=== PATIENT | male | born 1995 | race Caucasian/White ===

== ENCOUNTER 2019-07-20 11:17 | Emergency (ER) | payer OTHER, SELFPAY ==
[2019-07-20] MEDS ORDERED: KETOROLAC 30 MG/ML INJ ONE (11:51)
[2019-07-20] MEDS ORDERED: NA CHLORIDE 0.9% 1,000 ML ONE (11:51)
[2019-07-20 12:27] LABS: Basophils % 0.2 % (0-1.3); Hematocrit 43.2 % (39.6-49.0); Lymphocytes % 20.3 % (15.3-44.8); MPV 7.3 fL (7.6-11.3); RBC Red Blood Cell Count 5.16 M/uL (4.33-5.43)
[2019-07-20 12:37] LABS: Potassium 3.9 mmol/L (3.5-5.1)
--- NOTE | 2019-07-20 13:37 | EDPHYS ---
Physician Documentation [facility] Name: Aubrey Flores Age: 23 yrs Sex: Male : 1995 Arrival Date: 07/20/2019 Time: 11:21 Bed 20 Private MD: None, None ED Physician Oscar Díaz HPI: 07/20 14:31 This 23 yrs old Male presents to ER via Ambulatory with complaints of Back kdr Pain, Trouble Walking. 14:31 The patient has had generalized myalgia and arthralgia for the past week. he has not kdr had this before. He denies fever or any other associated s/s. Onset: The symptoms/episode began/occurred gradually, 1 week(s) ago. Severity of symptoms: At their worst the symptoms were mild in the emergency department the symptoms are unchanged. The patient has not experienced similar symptoms in the past. The patient has not recently seen a physician. Historical: - Allergies: 11:33 PENICILLINS; hb - Home Meds: 11:33 None [Active]; hb - PMHx: 11:33 None; hb - PSHx: 11:33 None; hb - Immunization history:: Adult Immunizations up to date. - Social history:: Smoking status: Patient/guardian denies using tobacco. - Ebola Screening: : No symptoms or risks identified at this time. ROS: 14:31 Constitutional: Negative for fever, chills, and weight loss, Eyes: Negative for injury, kdr pain, redness, and discharge, Neck: Negative for injury, pain, and swelling, Cardiovascular: Negative for chest pain, palpitations, and edema, Respiratory: Negative for shortness of breath, cough, wheezing, and pleuritic chest pain, Abdomen/GI: Negative for abdominal pain, nausea, vomiting, diarrhea, and constipation, Back: Negative for injury and pain, : Negative for injury, bleeding, discharge, and swelling, Skin: Negative for injury, rash, and discoloration, Neuro: Negative for headache, weakness, numbness, tingling, and seizure activity. Psych: Negative for depression, anxiety, suicide ideation, homicidal ideation, and hallucinations, Allergy/Immunology: Negative for hives, rash, and allergies, Endocrine: Negative for neck swelling, polydipsia, polyuria, polyphagia, and marked weight changes, Hematologic/Lymphatic: Negative for swollen nodes, abnormal bleeding, and unusual bruising. 14:31 MS/extremity: Positive for pain, Generalized myalgia and arthralgia . Exam: 14:31 Constitutional: This is a well developed, well nourished patient who is awake, alert, kdr and in no acute distress. Head/Face: Normocephalic, atraumatic. Eyes: Pupils equal round and reactive to light, extra-ocular motions intact. Lids and lashes normal. Conjunctiva and sclera are non-icteric and not injected. Cornea within normal limits. Periorbital areas with no swelling, redness, or edema. Neck: Trachea midline, no thyromegaly or masses palpated, and no cervical lymphadenopathy. Supple, full range of motion without nuchal rigidity, or vertebral point tenderness. No Meningismus. Chest/axilla: Normal chest wall appearance and motion. Nontender with no deformity. No lesions are appreciated. Cardiovascular: Regular rate and rhythm with a normal S1 and S2. No gallops, murmurs, or rubs. Normal PMI, no JVD. No pulse deficits. Respiratory: Lungs have equal breath sounds bilaterally, clear to auscultation and percussion. No rales, rhonchi or wheezes noted. No increased work of breathing, no retractions or nasal flaring. Abdomen/GI: Soft, non-tender, with normal bowel sounds. No distension or tympany. No guarding or rebound. No evidence of tenderness throughout. Back: No spinal tenderness. No costovertebral tenderness. Full range of motion. Skin: Warm, dry with normal turgor. Normal color with no rashes, no lesions, and no evidence of cellulitis. MS/ Extremity: Pulses equal, no cyanosis. Neurovascular intact. Full, normal range of motion. Neuro: Awake and alert, GCS 15, oriented to person, place, time, and situation. Cranial nerves II-XII grossly intact. Motor strength 5/5 in all extremities. Sensory grossly intact. Cerebellar exam normal. Normal gait. Psych: Awake, alert, with orientation to person, place and time. Behavior, mood, and affect are within normal limits. Vital Signs: 11:33 BP 137 / 77; Pulse 86; Resp 16; Temp 97.8; Pulse Ox 100% on R/A; Weight 104.33 kg; hb Height 6 ft. (182.88 cm); Pain 8/10; 13:10 BP 123 / 72; Pulse 60; Resp 16; Pulse Ox 98% on R/A; sg 11:33 Body Mass Index 31.19 (104.33 kg, 182.88 cm) hb MDM: 13:35 Patient medically screened. kdr 14:31 Data reviewed: vital signs, nurses notes, lab test result(s), radiologic studies. [facility] Counseling: I had a detailed discussion with the patient and/or guardian regarding: the historical points, exam findings, and any diagnostic results supporting the discharge/admit diagnosis, lab results, radiology results, the need for outpatient follow up. 07/20 11:46 Order name: CBC with Diff; Complete Time: 13:32 kdr 07/20 11:46 Order name: Chem 7; Complete Time: 13:32 kdr 07/20 11:46 Order name: Flu; Complete Time: 13:32 kdr 07/20 13:47 Order name: Urine Dipstick--Ancillary (enter results) eb Administered Medications: 12:09 Drug: NS 0.9% 1000 ml Route: IV; Rate: 1 bolus; Site: right antecubital; sg 12:09 Drug: TORadol - Ketorolac 15 mg Route: IVP; Site: right antecubital; sg 13:30 Follow up: Response: No adverse reaction sg Disposition: 07/20/19 13:35 Discharged to Home. Impression: Viral infection of unspecified site, Malaise and fatigue, Diarrhea, unspecified. - Condition is Stable. - Discharge Instructions: Fatigue, Diarrhea, Adult, [id number], Muscle Cramps and Spasms, [id number]. - Work release form, Medication Reconciliation Form, Thank You Letter form. - Follow up: Private Physician; When: 2 - 3 days; Reason: If symptoms return, Further diagnostic work-up, Recheck today's complaints, Continuance of care, Re-evaluation by your physician. - Problem is new. - Symptoms have improved. Signatures: Dispatcher [employer] Asher Paulino RN RN sg Osacr Díaz MD MD [facility] Madonna Martin RN RN Diandra Araujo Corrections: (The following items were deleted from the chart) 13:37 13:35 07/20/2019 13:35 Discharged to Home. Impression: Viral infection of unspecified kdr site; Malaise and fatigue. Condition is Stable. Forms are Medication Reconciliation Form, Thank You Letter, Antibiotic Education, Prescription Opioid Use. Follow up: Private Physician; When: 2 - 3 days; Reason: If symptoms return, Further diagnostic work-up, Recheck today's complaints, Continuance of care, Re-evaluation by your physician. Problem is new. Symptoms have improved. kdr 14:00 13:37 07/20/2019 13:35 Discharged to Home. Impression: Viral infection of unspecified eb site; Malaise and fatigue; Diarrhea, unspecified. Condition is Stable. Discharge Instructions: Fatigue, Muscle Cramps and Spasms, [id number]. Forms are Medication Reconciliation Form, Thank You Letter. Follow up: Private Physician; When: 2 - 3 days; Reason: If symptoms return, Further diagnostic work-up, Recheck today's complaints, Continuance of care, Re-evaluation by your physician. Problem is new. Symptoms have improved. kdr
--- NOTE | 2019-07-20 13:37 | ER ---
Nurse's Notes [facility] Name: Aubrey Flores Age: 23 yrs Sex: Male : 1995 Arrival Date: 07/20/2019 Time: 11:21 Bed 20 Private MD: None, None Diagnosis: Viral infection of unspecified site;Malaise and fatigue;Diarrhea, unspecified Presentation: 07/20 11:31 Presenting complaint: Low back pain, fatigue, and chills x 5 days, diarrhea x 2 days. hb Transition of care: patient was not received from another setting of care. Onset of symptoms was July 15, 2019. Risk Assessment: Do you want to hurt yourself or someone else? Patient reports no desire to harm self or others. Initial Sepsis Screen: Does the patient meet any 2 criteria? No. Patient's initial sepsis screen is negative. Does the patient have a suspected source of infection? No. Patient's initial sepsis screen is negative. Care prior to arrival: None. 11:31 Method Of Arrival: Ambulatory hb 11:31 Acuity: CATHY 4 hb Historical: - Allergies: 11:33 PENICILLINS; hb - Home Meds: 11:33 None [Active]; hb - PMHx: 11:33 None; hb - PSHx: 11:33 None; hb - Immunization history:: Adult Immunizations up to date. - Social history:: Smoking status: Patient/guardian denies using tobacco. - Ebola Screening: : No symptoms or risks identified at this time. Vital Signs: 11:33 BP 137 / 77; Pulse 86; Resp 16; Temp 97.8; Pulse Ox 100% on R/A; Weight 104.33 kg; hb Height 6 ft. (182.88 cm); Pain 8/10; 13:10 BP 123 / 72; Pulse 60; Resp 16; Pulse Ox 98% on R/A; sg 11:33 Body Mass Index 31.19 (104.33 kg, 182.88 cm) hb ED Course: 11:21 Patient arrived in ED. mr 11:22 None, None is Private Physician. mr 11:32 Triage completed. hb 11:32 Oscar Díaz MD is Attending Physician. kdr 11:33 Arm band placed on. hb 11:45 Patient has correct armband on for positive identification. Placed in gown. Bed in low iw position. Side rails up X2. Pulse ox on. NIBP on. 12:09 Asher Vogel, RN is Primary Nurse. sg 13:42 Initial lab(s) drawn, by ED staff, sent to lab. Inserted saline lock: 20 gauge in right iw antecubital area, using aseptic technique. Blood collected. Administered Medications: 12:09 Drug: NS 0.9% 1000 ml Route: IV; Rate: 1 bolus; Site: right antecubital; sg 12:09 Drug: TORadol - Ketorolac 15 mg Route: IVP; Site: right antecubital; sg 13:30 Follow up: Response: No adverse reaction sg Outcome: 13:35 Discharge ordered by . kdr 14:00 Patient left the ED. eb 14:00 Discharged to home ambulatory, with family. iw 14:00 Condition: good 14:00 Discharge instructions given to patient, Instructed on discharge instructions, follow up and referral plans. safety practices, Demonstrated understanding of instructions, follow-up care. Signatures: Asher Vogel, RN RN Oscar Díaz MD MD kdr Rivera, Mary mr Williams, Irene, RN RN Madonna Martin RN RN hb Botello, Elizabeth
[2019-07-20 14:24] VITALS: TEMP 97.8
[2019-07-20 14:25] VITALS: BP 123/72; O2SAT 98
[2019-07-20 18:59] LABS: Urine Blood NEGATIVE (NEG); Urine Glucose NEGATIVE (NEG); Urine Protein 1+ (NEG); Urine pH 5.5 (5.0-7.0)
== END 2019-07-20 14:00 | disposition home or self-care (01) ==
LOC: ER 11:17
DX: B34.9 Viral infection, unspecified (principal); R53.81 Other malaise; R53.83 Other fatigue; R19.7 Diarrhea, unspecified; Z88.0 Allergy status to penicillin
CPT/HCPCS: 36415; 80048; 81003; 85025; 87804; 96374; 99284; J7030

== ENCOUNTER 2020-03-11 13:01 | Emergency (ER) | payer BC, SELFPAY ==
[2020-03-11 14:08] LABS: Absolute Lymphocytes (CBC) 1.1 K/uL (0.7-4.9); Basophils % 0.4 % (0-1.3); Hematocrit 43.2 % (39.6-49.0); Lymphocytes % 22.5 % (15.3-44.8); MPV 7.6 fL (7.6-11.3); RBC Red Blood Cell Count 5.07 M/uL (4.33-5.43)
[2020-03-11 14:25] LABS: Albumin 3.8 g/dL (3.4-5.0); Bilirubin Direct 0.1 mg/dL (0-0.2); Bilirubin Total 0.5 mg/dL (0.2-1.0); Potassium 4.3 mmol/L (3.5-5.1); Protein, Total 7.6 g/dL (6.4-8.2)
[2020-03-11] MEDS ORDERED: ONDANSETRON 4 MG/2 ML VIAL ONE (14:35)
[2020-03-11] MEDS ORDERED: MORPHINE 4 MG/ML SYR ONE (14:35)
[2020-03-11] MEDS ORDERED: NA CHLORIDE 0.9% 1,000 ML ONE (14:35)
--- NOTE | 2020-03-11 14:54 | EDPHYS ---
Physician Documentation [facility] Name: Aubrey Flores Age: 24 yrs Sex: Male : 1995 Arrival Date: 03/11/2020 Time: 13:05 Bed 13 Private MD: ED Physician ePpe Ramsey HPI: 03/11 14:51 This 24 yrs old Male presents to ER via Ambulatory with complaints of ma2 Abdominal Cramping, Nausea/Vomiting/Diarrhea. 14:51 This 24 yrs old Male presents to ER via Ambulatory with complaints of ma2 Abdominal Cramping, Nausea/Vomiting/Diarrhea. 14:51 Associated signs and symptoms: Pertinent positives: diarrhea, vomiting, Pertinent ma2 negatives: fever, frequency, ruptured membranes, shortness of breath. The patient has not experienced similar symptoms in the past. The patient has not recently seen a physician. Historical: - Allergies: 13:23 PENICILLINS; ca1 - Home Meds: 13:23 None [Active]; ca1 - PMHx: 13:23 None; ca1 - PSHx: 13:23 None; ca1 - Immunization history:: Adult Immunizations up to date. - Social history:: Smoking status: Patient denies any tobacco usage or history of. Patient/guardian denies using alcohol, street drugs, The patient lives with family. - Family history:: not pertinent. ROS: 14:51 Constitutional: Negative for fever, chills, and weight loss. ma2 14:51 All other systems are negative. Exam: 14:51 Constitutional: This is a well developed, well nourished patient who is awake, alert, ma2 and in no acute distress. Chest/axilla: Normal chest wall appearance and motion. Nontender with no deformity. No lesions are appreciated. Cardiovascular: Regular rate and rhythm with a normal S1 and S2. No gallops, murmurs, or rubs. Normal PMI, no JVD. No pulse deficits. Respiratory: Lungs have equal breath sounds bilaterally, clear to auscultation and percussion. No rales, rhonchi or wheezes noted. No increased work of breathing, no retractions or nasal flaring. Abdomen/GI: Soft, non-tender, with normal bowel sounds. No distension or tympany. No guarding or rebound. No evidence of tenderness throughout. Male : Normal genitalia with no discharge or lesions. MS/ Extremity: Pulses equal, no cyanosis. Neurovascular intact. Full, normal range of motion. Neuro: Awake and alert, GCS 15, oriented to person, place, time, and situation. Cranial nerves II-XII grossly intact. Motor strength 5/5 in all extremities. Sensory grossly intact. Cerebellar exam normal. Normal gait. Vital Signs: 13:20 BP 131 / 87; Pulse 74; Resp 15 S; Temp 97.8(TE); Pulse Ox 98% on R/A; Weight 104.33 kg ca1 (R); Height 6 ft. 0 in. (182.88 cm) (R); Pain 6/10; 13:20 Body Mass Index 31.19 (104.33 kg, 182.88 cm) ca1 MDM: 13:33 Patient medically screened. [facility] 14:51 Differential diagnosis: diarrhea food poisoning vs gastroenteritis. Data reviewed: [facility] vital signs, nurses notes. Counseling: I had a detailed discussion with the patient and/or guardian regarding: the historical points, exam findings, and any diagnostic results supporting the discharge/admit diagnosis, the presence of at least one elevated blood pressure reading (>120/80) during this emergency department visit, the need for outpatient follow up. ED course: patient declined ct abd . 03/11 13:46 Order name: Basic Metabolic Panel [facility] 03/11 13:46 Order name: CBC with Diff [facility] 03/11 13:46 Order name: Hepatic Function [facility] 03/11 13:46 Order name: Lipase [facility] 03/11 13:46 Order name: IV Saline Lock; Complete Time: 14:00 [facility] 03/11 13:46 Order name: NPO; Complete Time: 14:00 [facility] Administered Medications: 14:46 Drug: Zofran (Ondansetron) 4 mg Route: IVP; Site: right antecubital; iw 14:46 Drug: NS 0.9% 1000 ml Route: IV; Rate: 1000 ml; Site: right antecubital; iw 14:46 Drug: morphine 4 mg Route: IVP; Site: right antecubital; iw Disposition: 03/11/20 14:53 Discharged to Home. Impression: Diarrhea, unspecified. - Condition is Stable. - Discharge Instructions: Food Choices to Help Relieve Diarrhea, Adult, Diarrhea, Adult. - Prescriptions for Bentyl 10 mg Oral Capsule - take 1 capsule by ORAL route every 6 hours As needed; 40 capsule. Zofran 4 mg Oral Tablet - take 1 tablet by ORAL route every 12 hours As needed; 20 tablet. Pepcid 20 mg Oral Tablet - take 1 tablet by ORAL route once daily for 10 days; 10 tablet. - Work release form, Medication Reconciliation Form, Thank You Letter, Antibiotic Education, Prescription Opioid Use form. - Follow up: Private Physician; When: Tomorrow; Reason: Recheck today's complaints, Continuance of care. Signatures: Dispatcher [employer] [facility] Daisy Paniagua RN RN iw Pepe Ramsey MD MD ma2 Noa Johnson RN RN ca1 Corrections: (The following items were deleted from the chart) 15:11 13:47 Abdomen Pelvis W Con+CT.RAD.BRZ ordered. [facility] 15:18 14:53 03/11/2020 14:53 Discharged to Home. Impression: Diarrhea, unspecified. Condition iw is Stable. Prescriptions for Bentyl 10 mg Oral Capsule - take 1 capsule by ORAL route every 6 hours As needed; 40 capsule, Zofran 4 mg Oral Tablet - take 1 tablet by ORAL route every 12 hours As needed; 20 tablet. and Forms are Medication Reconciliation Form, Thank You Letter, Antibiotic Education, Prescription Opioid Use. Follow up: Private Physician; When: Tomorrow; Reason: Recheck today's complaints, Continuance of care. ma2
--- NOTE | 2020-03-11 14:54 | ER ---
Nurse's Notes [facility] Name: Aubrey Flores Age: 24 yrs Sex: Male : 1995 Arrival Date: 03/11/2020 Time: 13:05 Bed 13 Private MD: Diagnosis: Diarrhea, unspecified Presentation: 03/11 13:20 Chief complaint: Patient states: "think I got food poisoning last night". Reports N/V/D ca1 since this morning. Reports abdominal cramps. Denies fever. Coronavirus screen: Proceed with normal triage. Patient denies a cough. Patient denies shortness of breath or difficulty breathing. Patient denies measured and/or subjective temperature greater than 100.4F prior to today's visit. Patient denies travel on a cruise ship or to a country the [facility] currently lists as an affected area. Patient denies contact with known and/or suspected case of COVID-19. Ebola Screen: Patient negative for fever greater than or equal to 101.5 degrees Fahrenheit, and additional compatible Ebola Virus Disease symptoms Patient denies exposure to infectious person. Patient denies travel to an Ebola-affected area in the 21 days before illness onset. No symptoms or risks identified at this time. Initial Sepsis Screen: Does the patient meet any 2 criteria? No. Patient's initial sepsis screen is negative. Does the patient have a suspected source of infection? No. Patient's initial sepsis screen is negative. Risk Assessment: Do you want to hurt yourself or someone else? Patient reports no desire to harm self or others. Onset of symptoms was March 11, 2020. 13:20 Method Of Arrival: Ambulatory ca1 13:20 Acuity: CATHY 3 ca1 Triage Assessment: 15:00 General: Appears in no apparent distress. Behavior is calm, cooperative. iw Historical: - Allergies: 13:23 PENICILLINS; ca1 - Home Meds: 13:23 None [Active]; ca1 - PMHx: 13:23 None; ca1 - PSHx: 13:23 None; ca1 - Immunization history:: Adult Immunizations up to date. - Social history:: Smoking status: Patient denies any tobacco usage or history of. Patient/guardian denies using alcohol, street drugs, The patient lives with family. - Family history:: not pertinent. Screenin:17 Abuse screen: Denies threats or abuse. Denies injuries from another. Nutritional iw screening: No deficits noted. Tuberculosis screening: No symptoms or risk factors identified. Fall Risk None identified. Assessment: 13:50 General: Appears in no apparent distress. comfortable, Behavior is calm, cooperative. iw Pain: Complains of pain in abdomen. Neuro: Level of Consciousness is awake, alert, obeys commands, Oriented to person, place, time, situation, Moves all extremities. Full function. Cardiovascular: Patient's skin is warm and dry. Respiratory: Respiratory effort is even, unlabored, Respiratory pattern is regular, symmetrical. GI: Abdomen is non-distended, Bowel sounds present X 4 quads. Abd is soft and non tender X 4 quads. Reports nausea. Derm: Skin is intact, is healthy with good turgor. Musculoskeletal: Range of motion: intact in all extremities. Vital Signs: 13:20 BP 131 / 87; Pulse 74; Resp 15 S; Temp 97.8(TE); Pulse Ox 98% on R/A; Weight 104.33 kg ca1 (R); Height 6 ft. 0 in. (182.88 cm) (R); Pain 6/10; 13:20 Body Mass Index 31.19 (104.33 kg, 182.88 cm) ca1 ED Course: 13:05 Patient arrived in ED. ag5 13:22 Triage completed. ca1 13:23 Arm band placed on right wrist. ca1 13:32 Daisy Paniagua, RN is Primary Nurse. iw 13:32 Pepe Ramsey MD is Attending Physician. ma2 13:50 Patient has correct armband on for positive identification. iw 14:00 Initial lab(s) drawn, by me, sent to lab. Inserted saline lock: 20 gauge in right em1 antecubital area, using aseptic technique. Blood collected. 14:27 Note: pt did not feel he wants the scan at this time. informed Dr. Ramsey and he said sj he would wait till the labs are back to re evaluate. 15:17 No provider procedures requiring assistance completed. IV discontinued, intact, iw bleeding controlled, No redness/swelling at site. Pressure dressing applied. Administered Medications: 14:46 Drug: Zofran (Ondansetron) 4 mg Route: IVP; Site: right antecubital; iw 14:46 Drug: NS 0.9% 1000 ml Route: IV; Rate: 1000 ml; Site: right antecubital; iw 14:46 Drug: morphine 4 mg Route: IVP; Site: right antecubital; iw Outcome: 14:53 Discharge ordered by . danica 15:17 Discharged to home ambulatory, with family. iw 15:17 Condition: good 15:17 Discharge instructions given to patient, Instructed on discharge instructions, follow up and referral plans. medication usage, Demonstrated understanding of instructions, follow-up care, medications, Prescriptions given X 3. 15:18 Patient left the ED. iw Signatures: Gaby Riley Irene, RN RN iw Job Jacob Mohammad, MD MD ma2 Acob, Cheryl, RN RN Ad Castañeda ag5
[2020-03-11 15:32] VITALS: BP 131/87; TEMP 97.8; O2SAT 98
== END 2020-03-11 15:18 | disposition home or self-care (01) ==
LOC: ER 13:01
DX: R19.7 Diarrhea, unspecified (principal); Z88.0 Allergy status to penicillin
CPT/HCPCS: 85025; 80048; 36415; 80076; 83690; 96375; 96374; 99284; J7030; J2405

== ENCOUNTER 2021-04-07 12:59 | Emergency (ER) | payer BC ==
[2021-04-07] MEDS ORDERED: ACETAMINOPHEN 500 MG TAB ONE (16:09)
[2021-04-07] MEDS ORDERED: IBUPROFEN 400 MG TAB ONE (16:09)
[2021-04-07] MEDS ORDERED: LIDOCAINE 4% PATCH ONE (16:09)
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
[2021-04-07 17:05] VITALS: TEMP 98.1; O2SAT 99
[2021-04-07 17:07] VITALS: BP 119/69
== END 2021-04-07 16:42 | disposition home or self-care (01) ==
LOC: ER 12:59
DX: M54.5 Low back pain (principal); V49.40XA Driver injured in collision with unspecified motor vehicles in traffic accident, initial encounter; Z88.0 Allergy status to penicillin
CPT/HCPCS: 72100; 99284

== ENCOUNTER 2023-05-24 01:47 | Emergency (ER) | payer SELFPAY ==
--- NOTE | 2023-05-24 03:03 | EDPHYS ---
Physician Documentation [facility] Name: Aubrey Flores Age: 27 yrs Sex: Male : 1995 Arrival Date: 05/24/2023 Time: 01:47 Bed 9 Private MD: ED Physician Orlando Walker HPI: 05/24 02:53 This 27 yrs old Male presents to ER via Ambulatory with complaints of symone Toothache. 02:53 The patient presents with broken tooth/teeth. The problem is located in the right jaw. symone Onset: The symptoms/episode began/occurred 3 day(s) ago. Duration: The symptoms are continuous, and are steadily getting worse. Modifying factors: The symptoms are alleviated by nothing. Associated signs and symptoms: The patient has no apparent associated signs or symptoms. Severity of symptoms: At their worst the symptoms were moderate, in the emergency department the symptoms are unchanged. The patient has not experienced similar symptoms in the past. Historical: - Allergies: 02:14 PENICILLINS; kl - Home Meds: 02:14 None [Active]; kl - PMHx: 02:14 None; kl - PSHx: 02:14 None; kl - Immunization history:: Adult Immunizations not immunized. - Social history:: Smoking status: Patient reports use of chewing tobacco. - Family history:: not pertinent. ROS: 02:53 Constitutional: Negative for fever, chills, and weight loss, Eyes: Negative for injury, symone pain, redness, and discharge, Neck: Negative for injury, pain, and swelling, Cardiovascular: Negative for chest pain, palpitations, and edema, Respiratory: Negative for shortness of breath, cough, wheezing, and pleuritic chest pain, Abdomen/GI: Negative for abdominal pain, nausea, vomiting, diarrhea, and constipation, Back: Negative for injury and pain, : Negative for injury, bleeding, discharge, and swelling, MS/Extremity: Negative for injury and deformity, Skin: Negative for injury, rash, and discoloration, Neuro: Negative for headache, weakness, numbness, tingling, and seizure, Psych: Negative for depression, anxiety, suicide ideation, homicidal ideation, and hallucinations, Allergy/Immunology: Negative for hives, rash, and allergies, Endocrine: Negative for neck swelling, polydipsia, polyuria, polyphagia, and marked weight changes, Hematologic/Lymphatic: Negative for swollen nodes, abnormal bleeding, and unusual bruising. 02:53 ENT: Positive for dental pain, Gum pain Exam: 02:53 Constitutional: This is a well developed, well nourished patient who is awake, alert, symone and in no acute distress. Head/Face: Normocephalic, atraumatic. Eyes: Pupils equal round and reactive to light, extra-ocular motions intact. Lids and lashes normal. Conjunctiva and sclera are non-icteric and not injected. Cornea within normal limits. Periorbital areas with no swelling, redness, or edema. Neck: Trachea midline, no thyromegaly or masses palpated, and no cervical lymphadenopathy. Supple, full range of motion without nuchal rigidity, or vertebral point tenderness. No Meningismus. Chest/axilla: Normal chest wall appearance and motion. Nontender with no deformity. No lesions are appreciated. Cardiovascular: Regular rate and rhythm with a normal S1 and S2. No gallops, murmurs, or rubs. Normal PMI, no JVD. No pulse deficits. Respiratory: Lungs have equal breath sounds bilaterally, clear to auscultation and percussion. No rales, rhonchi or wheezes noted. No increased work of breathing, no retractions or nasal flaring. Abdomen/GI: Soft, non-tender, with normal bowel sounds. No distension or tympany. No guarding or rebound. No evidence of tenderness throughout. Back: No spinal tenderness. No costovertebral tenderness. Full range of motion. Male : Normal genitalia with no discharge or lesions. Skin: Warm, dry with normal turgor. Normal color with no rashes, no lesions, and no evidence of cellulitis. MS/ Extremity: Pulses equal, no cyanosis. Neurovascular intact. Full, normal range of motion. Neuro: Awake and alert, GCS 15, oriented to person, place, time, and situation. Cranial nerves II-XII grossly intact. Motor strength 5/5 in all extremities. Sensory grossly intact. Cerebellar exam normal. Normal gait. Psych: Awake, alert, with orientation to person, place and time. Behavior, mood, and affect are within normal limits. 02:53 ENT: Mouth: Gums: swollen, on the upper right second molar, upper right first molar, upper right second bicuspid and upper right first bicuspid. Vital Signs: 02:13 BP 144 / 99; Pulse 58; Resp 16; Temp 98.4(O); Pulse Ox 100% ; Weight 108.86 kg (R); kl Height 6 ft. 0 in. ; Pain 10/10; 03:18 BP 138 / 82; Pulse 52; Resp 16; Pulse Ox 99% on R/A; kl 02:13 Body Mass Index 32.55 (108.86 kg, 182.88 cm) kl 02:13 Pain Scale: Adult kl MDM: 01:52 Patient medically screened. [facility] 02:57 Differential diagnosis: dental caries, gingivitis. Data reviewed: vital signs, nurses [facility] notes. Consideration of Admission/Observation Escalation of care including admission/observation considered. I considered the following discharge prescriptions or medication management in the emergency department Medications were administered in the Emergency Department. See MAR. Care significantly affected by the following chronic conditions:. Administered Medications: 03:00 Drug: Lodi PO 10 mg-325 mg 1 tabs Route: PO; kl 03:17 Follow up: Response: No adverse reaction; Marked relief of symptoms kl 03:00 Drug: Clindamycin PO 300 mg Route: PO; kl 03:17 Follow up: Response: No adverse reaction; Marked relief of symptoms kl 03:00 Drug: Ketorolac IM 60 mg Route: IM; Site: right ventrogluteal; kl 03:17 Follow up: Response: No adverse reaction; Marked relief of symptoms kl Disposition Summary: 05/24/23 03:02 Discharge Ordered Location: Home symone Problem: new symone Symptoms: have improved symone Condition: Stable symone Diagnosis - Dental caries, unspecified symone - Cracked tooth symone Followup: symone - With: Private Physician - When: 2 - 3 days - Reason: Recheck today's complaints, Continuance of care, Re-evaluation by your physician Followup: symone - With: Caleb Carolina DDS - When: 2 - 3 days - Reason: Recheck today's complaints, Re-evaluation by your physician Discharge Instructions: - Discharge Summary Sheet symone - Dental Caries, Adult symone - Dental Pain symone - Tooth Injuries symone - Dental Pain, [id number] symone - Diet and Dental Disease symone Forms: - Medication Reconciliation Form symone - Thank You Letter symone - Antibiotic Education symone - Prescription Opioid Use symone - Patient Portal Instructions [facility] - Leadership Thank You Letter [facility] Prescriptions: - acetaminophen-codeine 300-30 mg Oral tablet - take 2 tablet by ORAL route every 6 hours as needed for pain; 20 tablet; symone Refills: 0, Product Selection Permitted - Clindamycin HCl 300 mg Oral Capsule - take 1 capsule by ORAL route every 6 hours for 7 days; 28 capsule; Refills: 0, symone Product Selection Permitted - Diclofenac Sodium 75 mg Oral tablet,delayed release (DR/EC) - take 1 tablet by ORAL route 2 times per day; 20 tablet; Refills: 0, Product symone Selection Permitted Signatures: Ev Cali RN RN kl Anderson, Corey, MD MD cha Corrections: (The following items were deleted from the chart) 02:14 02:14 Allergies: PENICILLINS; siddhartha carl 02:14 02:14 Home Meds: Unable to obtain; siddhartha carl
--- NOTE | 2023-05-24 03:03 | ER ---
Nurse's Notes [facility] Name: Aubrey Flores Age: 27 yrs Sex: Male : 1995 Arrival Date: 05/24/2023 Time: 01:47 Bed 9 Private MD: Diagnosis: Dental caries, unspecified;Cracked tooth Presentation: 05/24 02:13 Chief complaint: Patient states: tooth pain since 1030 pm. Coronavirus screen: Vaccine kl status: Patient reports being unvaccinated. Ebola Screen: Patient negative for fever greater than or equal to 101.5 degrees Fahrenheit, and additional compatible Ebola Virus Disease symptoms. Initial Sepsis Screen: Does the patient meet any 2 criteria? No. Patient's initial sepsis screen is negative. Does the patient have a suspected source of infection? No. Patient's initial sepsis screen is negative. Risk Assessment: Do you want to hurt yourself or someone else? Patient reports no desire to harm self or others. Onset of symptoms was May 23, 2023 at 22:30. 02:13 Method Of Arrival: Ambulatory 02:13 Acuity: CATHY 4 kl Triage Assessment: 02:14 General: Appears distressed, uncomfortable, Behavior is cooperative. Pain: Complains of kl pain in right jaw Pain currently is 10 out of 10 on a pain scale. EENT: Reports pain in right jaw. Historical: - Allergies: 02:14 PENICILLINS; kl - Home Meds: 02:14 None [Active]; kl - PMHx: 02:14 None; kl - PSHx: 02:14 None; kl - Immunization history:: Adult Immunizations not immunized. - Social history:: Smoking status: Patient reports use of chewing tobacco. - Family history:: not pertinent. Screenin:18 [facility] ED Fall Risk Assessment (Adult) History of falling in the last 3 months, kl including since admission No falls in past 3 months (0 pts) Confusion or Disorientation No (0 pts) Intoxicated or Sedated No (0 pts) Impaired Gait No (0 pts) Mobility Assist Device Used No (0 pt) Altered Elimination No (0 pt) Score/Fall Risk Level 0 - 2 = Low Risk Oriented to surroundings, Maintained a safe environment. Abuse screen: Denies threats or abuse. Nutritional screening: No deficits noted. Tuberculosis screening: No symptoms or risk factors identified. Assessment: 03:18 Reassessment: Patient appears in no apparent distress at this time. Patient states kl symptoms have improved. Vital Signs: 02:13 BP 144 / 99; Pulse 58; Resp 16; Temp 98.4(O); Pulse Ox 100% ; Weight 108.86 kg (R); kl Height 6 ft. 0 in. ; Pain 10/10; 03:18 BP 138 / 82; Pulse 52; Resp 16; Pulse Ox 99% on R/A; kl 02:13 Body Mass Index 32.55 (108.86 kg, 182.88 cm) kl 02:13 Pain Scale: Adult kl ED Course: 01:50 Patient arrived in ED. mr 01:52 Orlando Walker MD is Attending Physician. [facility] 02:14 Triage completed. kl 03:01 Caleb Carolina DDS is Referral Physician. symone 03:19 Patient has correct armband on for positive identification. kl 03:19 No provider procedures requiring assistance completed. Patient did not have IV access kl during this emergency room visit. Administered Medications: 03:00 Drug: [place] PO 10 mg-325 mg 1 tabs Route: PO; kl 03:17 Follow up: Response: No adverse reaction; Marked relief of symptoms kl 03:00 Drug: Clindamycin PO 300 mg Route: PO; kl 03:17 Follow up: Response: No adverse reaction; Marked relief of symptoms kl 03:00 Drug: Ketorolac IM 60 mg Route: IM; Site: right ventrogluteal; kl 03:17 Follow up: Response: No adverse reaction; Marked relief of symptoms kl Outcome: 03:02 Discharge ordered by . [facility] 03:19 Discharged to home ambulatory. kl 03:19 Condition: stable 03:19 Discharge instructions given to patient, Instructed on discharge instructions, follow up and referral plans. medication usage, Demonstrated understanding of instructions, follow-up care, medications, Prescriptions given X 3. 03:19 Patient left the ED. kl Signatures: Ev Cali RN RN kl Anderson, Corey, MD MD cha Rivera, Mary mr Corrections: (The following items were deleted from the chart) 02:14 02:14 Allergies: PENICILLINS; kl kl 02:14 02:14 Home Meds: Unable to obtain; kl kl 03:13 03:12 Ketorolac IM 60 mg IM in right ventrogluteal kl kl
[2023-05-24] MEDS ORDERED: KETOROLAC 30 MG/ML INJ ONE (03:07)
[2023-05-24] MEDS ORDERED: HYDROCODONE/APAP 10/325 TAB ONE (03:07)
[2023-05-24 03:31] VITALS: TEMP 98.4
[2023-05-24 03:32] VITALS: BP 138/82; O2SAT 99
== END 2023-05-24 03:19 | disposition home or self-care (01) ==
LOC: ER 01:47
DX: K03.81 Cracked tooth (principal)
CPT/HCPCS: 96372; 99284